=== PATIENT | male | born 1940 | race Caucasian/White ===

== ENCOUNTER → 2017-06-26 | Outpatient (CLI) | payer OTHER | LOC: CIMAGING 11:39 | PROVIDERS: ATTEND Family Medicine | DX: J98.4 Other disorders of lung (principal) | CPT/HCPCS: 71046-PO ==

== ENCOUNTER → 2017-08-13 | Outpatient (CLI) | payer OTHER | LOC: CIMAGING 11:19 | PROVIDERS: ATTEND Family Medicine | DX: J40 Bronchitis, not specified as acute or chronic (principal); J43.2 Centrilobular emphysema; K80.20 Calculus of gallbladder without cholecystitis without obstruction; I51.7 Cardiomegaly; Z87.891 Personal history of nicotine dependence; Z95.4 Presence of other heart-valve replacement | CPT/HCPCS: 71250-PO ==

== ENCOUNTER → 2017-11-23 | Outpatient (CLI) | payer OTHER | LOC: CIMAGING 10:04 | PROVIDERS: ATTEND Internal Medicine Critical Care Medicine | DX: J44.9 Chronic obstructive pulmonary disease, unspecified (principal); I31.8 Other specified diseases of pericardium; Z95.5 Presence of coronary angioplasty implant and graft; Z87.891 Personal history of nicotine dependence | CPT/HCPCS: 71046-PO ==